=== PATIENT | male | born 1960 | race African-American/Black ===

== ENCOUNTER 2025-06-23 13:54 | Emergency (ER) | payer BC, OTHER ==
[~2025-06-23] VITALS: Ht 167.6 cm; Wt 114.0 kg
[2025-06-23 14:04] VITALS: O2SAT 96
[2025-06-23] MEDS: TETANUS, DIPHTHERIA, PERTUSSIS VAC/PF 0.5ML (>10YR OLD) IM ONE (14:29)
[2025-06-23] MEDS: BACITRACIN ZINC OINT UDPKT TOP ONE (14:29)
[2025-06-23] MEDS ORDERED: BO1 TP (14:48)
[2025-06-23 15:08] VITALS: BP 154/80; PULSE 72; RESP 16; TEMP 36.1; O2SAT 99
== END 2025-06-23 15:13 | disposition home or self-care (01) ==
LOC: ER 13:54
DX: S81.811A Laceration without foreign body, right lower leg, initial encounter (principal); I10 Essential (primary) hypertension; W18.2XXA Fall in (into) shower or empty bathtub, initial encounter; Y93.E1 Activity, personal bathing and showering; Y92.89 Other specified places as the place of occurrence of the external cause; Y99.8 Other external cause status
CPT/HCPCS: 90471; 90715; 99283